=== PATIENT | female | born 2000 | race Caucasian/White ===

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

== ENCOUNTER 2019-04-05 16:32 | Emergency (ER) | payer MEDICAID, SELFPAY ==
--- NOTE | 2019-04-05 17:35 | RAD ---
Exam: Chest one view HISTORY:Shortness of breath Comparison: 08/17/2018 FINDINGS: Cardiac silhouette: Normal Aorta: Unremarkable Pulmonary vessels: Normal Costophrenic angles: Clear LUNGS: No masses or consolidation. Pneumothorax: None Osseous abnormalities: None IMPRESSION: No acute cardiopulmonary process.
== END 2019-04-05 18:12 | disposition home or self-care (01) ==
LOC: MADERS 16:32
DX: R07.2 Precordial pain (principal); F32.9 Major depressive disorder, single episode, unspecified; J45.909 Unspecified asthma, uncomplicated
CPT/HCPCS: 71045; 93005

== ENCOUNTER 2019-04-14 19:44 | Emergency (ER) | payer SELFPAY ==
[2019-04-14 20:07] LABS: Bilirubin Negative (Negative); Blood, Urine Moderate (Negative); Clarity Clear (Clear); Glucose, Urine (Dipstick) Negative (Negative); Leukocyte Negative (Negative); Nitrite Negative (Negative); Protein, Urine (Dipstick) Negative (Neg-Trace); Urobilinogen 0.2 mg/dL (Less than 2)
[2019-04-14 20:10] LABS: Pregnancy Test - Urine (BHCG) Negative (Negative)
[2019-04-14 20:11] LABS: Pregu Control Background? CLEAR/WHITE (CLR/WHITE); Pregu Control Bar Appear? YES (CONTROL BAR); Specific Gravity 1.023 (1.002-1.036)
[2019-04-14 20:14] LABS: Bacteria/HPF Rare-Few HPF (None Seen); WBC/HPF 0-3 HPF (0-3)
[2019-04-14] MEDS ORDERED: Sodium Chloride 0.9% 1,000 ML ONE (20:29)
[2019-04-14 20:53] LABS: #Basophils 0.1 thou/uL (0.0-0.2); #Eosinphils 0.3 thou/uL (0.0-0.7); #Lymphocytes 4.1 thou/uL (1.20-3.40); #Monocytes 0.9 thou/uL (0.11-0.59); #Neutrophils 7.2 thou/uL (1.40-6.50); %Basophils 0.7 % (0.0-1.0); %Eosinophils 2.1 % (0.0-10.0); %Lymphocytes 32.8 % (28.0-48.0); %Monocytes 7.3 % (0.0-4.0); %Neutrophils 57.2 % (31.0-61.0); Hemoglobin 13.6 g/dL (12.0-16.0); Mean Corpuscular HGB CONC 32.1 g/dL (32.0-36.0); Mean Corpuscular Hemoglobin 27.5 pg (25.0-35.0); Mean Corpuscular Volume 85.8 fL (78.0-98.0); Mean Platelet Volume 7.6 fL (7.4-10.4); Platelet Count 282 thou/uL (130-400); RBC Distribution Width 11.6 % (11.5-14.5); Red Blood Cell (RBC) Count 4.94 mill/uL (4.00-5.20); White Blood Cell (WBC) Count 12.5 thou/uL (4.8-10.8)
[2019-04-14 21:11] LABS: ALT (SGPT) 29 U/L (8-55); AST (SGOT) 17 U/L (5-30); Alkaline Phosphatase 90 U/L (40-100); Anion Gap 12 mmol/L (10-20); BUN (Urea Nitrogen) 8 mg/dL (8.4-21.0); Bilirubin, Total 0.3 mg/dL (0.2-1.2); CK (CPK) 36 U/L (29-168); Calc. Creatinine Clearance 0 mL/min (70-130); Carbon Dioxide 24 mmol/L (22-29); Chloride 107 mmol/L (98-107); Estimated GFR-MDRD Greater than 90; Globulin 3.2 g/dL (2.4-3.5); Glucose 94 mg/dL (70-105); Potassium 3.9 mmol/L (3.5-5.1); Protein, Total 7.2 g/dL (6.0-8.3); Sodium 139 mmol/L (136-145)
== END 2019-04-14 21:48 | disposition home or self-care (01) ==
LOC: MADERS 19:44
DX: N92.0 Excessive and frequent menstruation with regular cycle (principal); J45.909 Unspecified asthma, uncomplicated; F32.9 Major depressive disorder, single episode, unspecified
CPT/HCPCS: 80053; 81003; 81015; 81025; 82550; 84443; 85025; 96360; J7050

== ENCOUNTER 2020-05-20 00:11 | Emergency (ER) | payer MEDICAID, OTHER ==
[2020-05-20 19:30] LABS: SARS-CoV-2 MS2 Positive; SARS-CoV-2 N Gene Negative; SARS-CoV-2 S Gene Negative; SARS-CoV-2 by NAA Not Detected (NotDetected); SARS-CoV-2 orf1ab Negative
== END 2020-05-20 01:18 | disposition home or self-care (01) ==
LOC: MADERS 00:11
DX: J20.9 Acute bronchitis, unspecified (principal); Z20.828 Contact with and (suspected) exposure to other viral communicable diseases; F32.9 Major depressive disorder, single episode, unspecified
CPT/HCPCS: 87635; 99283; U0003

== ENCOUNTER 2023-06-21 19:14 | Emergency (ER) | payer OTHER ==
[2023-06-21 19:46] LABS: #Basophils 0.1 thou/uL (0.0-0.2); #Eosinphils 0.2 thou/uL (0.0-0.7); #Lymphocytes 3.9 thou/uL (1.20-3.40); #Monocytes 0.8 thou/uL (0.11-0.59); #Neutrophils 10.1 thou/uL (1.40-6.50); %Basophils 0.5 % (0.0-1.0); %Eosinophils 1.6 % (0.0-10.0); %Lymphocytes 25.5 % (21.0-51.0); %Monocytes 5.5 % (0.0-10.0); Hematocrit 45.2 % (36.0-47.0); Hemoglobin 14.3 g/dL (12.0-16.0); Mean Corpuscular HGB CONC 31.5 g/dL (32.0-36.0); Mean Corpuscular Volume 88.9 fl (78.0-98.0); Mean Platelet Volume 9.3 fL (7.4-10.4); Platelet Count 337 10x3/uL (130-400); RBC Distribution Width 12.2 % (11.5-14.5); Red Blood Cell (RBC) Count 5.09 mill/uL (4.20-5.40); White Blood Cell (WBC) Count 15.1 10x3/uL (4.8-10.8)
[2023-06-21 19:56] LABS: BHCG - Serum Negative (NEGATIVE); Pregs Control Background? CLEAR/WHITE (CLR/WHITE); Pregs Control Bar Appear? YES (CONTROL BAR)
[2023-06-21 20:03] LABS: Anion Gap 16 mmol/L (10-20); BUN (Urea Nitrogen) 12 mg/dL (7.0-18.7); Calc. Creatinine Clearance 0 mL/min (70-130); Calcium 9.6 mg/dL (7.8-10.44); Carbon Dioxide 23 mmol/L (22-29); Chloride 103 mmol/L (98-107); Estimated GFR 125; Glucose 102 mg/dL (70-105); Lipase 14 U/L (8-78); Potassium 3.6 mmol/L (3.5-5.1); Sodium 138 mmol/L (136-145)
[2023-06-21 20:09] LABS: Troponin I Less than 0.010 ng/mL (< 0.028)
[2023-06-21] MEDS ORDERED: Ketorolac Tromethamine 10 MG TAB ONE (20:51)
== END 2023-06-21 20:55 | disposition home or self-care (01) ==
LOC: MADERS 19:14
DX: R07.81 Pleurodynia (principal); F41.9 Anxiety disorder, unspecified; J45.909 Unspecified asthma, uncomplicated
CPT/HCPCS: 36415; 71045; 80048; 83690; 84484; 84703; 85025; 93005

== ENCOUNTER 2023-08-08 18:47 | Emergency (ER) | payer OTHER ==
[2023-08-08] MEDS ORDERED: Acetaminophen 500 MG TAB ONE (19:49)
[2023-08-08] MEDS ORDERED: Oseltamivir 75 MG CAP ONE (19:49)
[2023-08-08 19:50] LABS: INR-International Normal Ratio 1.1; Prothrombin Time 14.7 sec (12.0-14.7)
[2023-08-08] MEDS ORDERED: Lactated Ringer's 2,000 ML ONE (19:50)
[2023-08-08] MEDS ORDERED: Ketorolac Tromethamine 30 MG (1 mL) VIAL ONE (19:50)
[2023-08-08 19:51] LABS: PTT 33.2 sec (22.9-36.1)
[2023-08-08 19:52] LABS: BHCG - Serum Negative (NEGATIVE); Pregs Control Background? CLEAR/WHITE (CLR/WHITE); Pregs Control Bar Appear? YES (CONTROL BAR)
[2023-08-08 19:57] LABS: #Basophils 0.1 thou/uL (0.0-0.2); #Lymphocytes 1.8 thou/uL (1.20-3.40); #Monocytes 1.1 thou/uL (0.11-0.59); #Neutrophils 5.1 thou/uL (1.40-6.50); %Basophils 1.7 % (0.0-1.0); %Eosinophils 0.4 % (0.0-10.0); %Neutrophils 62.9 % (42.0-75.0); Hematocrit 45.1 % (36.0-47.0); Hemoglobin 14.4 g/dL (12.0-16.0); Mean Corpuscular HGB CONC 31.9 g/dL (32.0-36.0); Mean Corpuscular Hemoglobin 27.6 pg (27.0-31.0); Mean Corpuscular Volume 86.4 fl (78.0-98.0); Mean Platelet Volume 8.7 fL (7.4-10.4); Platelet Count 276 10x3/uL (130-400); RBC Distribution Width 12.2 % (11.5-14.5); Red Blood Cell (RBC) Count 5.22 mill/uL (4.20-5.40); White Blood Cell (WBC) Count 8.1 10x3/uL (4.8-10.8)
[2023-08-08 20:01] LABS: ALT (SGPT) 41 U/L (8-55); AST (SGOT) 26 U/L (5-34); Albumin 4.3 g/dL (3.5-5.0); Alkaline Phosphatase 93 U/L (40-110); Anion Gap 15 mmol/L (10-20); BUN (Urea Nitrogen) 6 mg/dL (7.0-18.7); Bilirubin, Total 0.4 mg/dL (0.2-1.2); Calc. Creatinine Clearance 0 mL/min (70-130); Calcium 9.7 mg/dL (7.8-10.44); Carbon Dioxide 26 mmol/L (22-29); Chloride 102 mmol/L (98-107); Estimated GFR 108; Globulin 3.6 g/dL (2.4-3.5); Glucose 139 mg/dL (70-105); Lipase 8 U/L (8-78); Potassium 3.7 mmol/L (3.5-5.1); Protein, Total 7.9 g/dL (6.0-8.3); Sodium 139 mmol/L (136-145); Troponin I Less than 0.010 ng/mL (< 0.028)
[2023-08-08 22:23] LABS: Lactic Acid 1.5 mmol/L (0.5-2.2)
== END 2023-08-08 22:55 | disposition home or self-care (01) ==
LOC: MADERS 18:47
DX: J10.1 Influenza due to other identified influenza virus with other respiratory manifestations (principal); R00.0 Tachycardia, unspecified
CPT/HCPCS: 36415; 71046; 80053; 83605; 83690; 84484; 84703; 85025; 85610; 85730; 87040; 87804; 93005; 94760; 96374; J1885; J7120

== ENCOUNTER 2023-09-03 09:11 | Emergency (ER) | payer OTHER | END 2023-09-03 09:26 | disposition home or self-care (01) | LOC: MADERS 09:11 | DX: A05.9 Bacterial foodborne intoxication, unspecified (principal) | CPT/HCPCS: 99283 ==

== ENCOUNTER 2024-01-02 21:38 | Emergency (ER) | payer OTHER | END 2024-01-02 22:57 | disposition home or self-care (01) | LOC: MADERS 21:38 | DX: S93.602A Unspecified sprain of left foot, initial encounter (principal); J45.909 Unspecified asthma, uncomplicated; X50.0XXA Overexertion from strenuous movement or load, initial encounter ==

== ENCOUNTER 2024-05-15 14:47 | Emergency (ER) | payer OTHER ==
[2024-05-15] MEDS ORDERED: Penicillin V Potassium 250 MG TAB ONE (16:26)
== END 2024-05-15 16:30 | disposition home or self-care (01) ==
LOC: MADERS 14:47
DX: J02.9 Acute pharyngitis, unspecified (principal)
CPT/HCPCS: 87081; 87400; 87430; 99283

== ENCOUNTER 2024-05-30 19:40 | Emergency (ER) | payer OTHER ==
[2024-05-30] MEDS ORDERED: Dexamethasone 10 MG/ML VIAL ONE (20:10)
[2024-05-30] MEDS ORDERED: Acetaminophen 500 MG TAB ONE (20:10)
[2024-05-30] MEDS ORDERED: Sodium Chloride 0.9% 1,000 ML ONE (20:11)
[2024-05-30 21:01] LABS: Band 1 % (5-11); Eosinophils 2 % (0-10); Hematocrit 31.3 % (36.0-47.0); Hemoglobin 9.7 g/dL (12.0-16.0); Lymphocytes 18 % (21-51); MDiff Complete? YES; Mean Corpuscular Hemoglobin 23.6 pg (27.0-31.0); Mean Corpuscular Volume 76.4 fl (78.0-98.0); Mean Platelet Volume 7.8 fL (7.4-10.4); Microcytosis SLIGHT = 6-15 cells (100X) (0-5/hpf); Monocytes 6 % (0-10); Neutrophil 73 % (42-75); Ovalocytes SLIGHT = 2-5 cells (100X) (0-1/hpf); Platelet Adequacy Comment Appears Adequate; Platelet Count 405 10x3/uL (130-400); RBC Distribution Width 13.2 % (11.5-14.5); Red Blood Cell (RBC) Count 4.11 mill/uL (4.20-5.40); Tear Drops SLIGHT = 2-5 cells (100X) (0-1/hpf); White Blood Cell (WBC) Count 14.8 10x3/uL (4.8-10.8)
[2024-05-30 21:12] LABS: ALT (SGPT) 24 U/L (8-55); AST (SGOT) 17 U/L (5-34); Albumin 3.7 g/dL (3.5-5.0); Alkaline Phosphatase 95 U/L (40-110); Anion Gap 12 mmol/L (10-20); BUN (Urea Nitrogen) 12 mg/dL (7.0-18.7); Bilirubin, Total 0.2 mg/dL (0.2-1.2); Calc. Creatinine Clearance 0 mL/min (70-130); Calcium 9.1 mg/dL (7.8-10.44); Carbon Dioxide 25 mmol/L (22-29); Chloride 108 mmol/L (98-107); Estimated GFR 109; Globulin 2.9 g/dL (2.4-3.5); Glucose 106 mg/dL (70-105); Potassium 3.8 mmol/L (3.5-5.1); Protein, Total 6.6 g/dL (6.0-8.3); Sodium 141 mmol/L (136-145)
[2024-05-30 21:25] LABS: Bilirubin Negative (Negative); Blood, Urine Negative (Negative); CAUTI Indications for Culture Fever or rigors; Clarity Clear (Clear); Glucose, Urine (Dipstick) Negative (Negative); Ketone, Urine Trace mg/dL (Negative); Leukocyte Negative (Negative); Nitrite Negative (Negative); Protein, Urine (Dipstick) Negative (Neg-Trace); RBC/HPF None Seen HPF (0-3); Urobilinogen 0.2 mg/dL (Less than 2); WBC/HPF 0-3 HPF (0-3); pH, Urine 8.5 (5.0-9.0)
[2024-05-30 21:26] LABS: Pregnancy Test - Urine (BHCG) Negative (Negative); Pregu Control Background? CLEAR/WHITE (CLR/WHITE); Pregu Control Bar Appear? YES (CONTROL BAR); Urine Culture Reflex No No
== END 2024-05-30 21:43 | disposition home or self-care (01) ==
LOC: MADERS 19:40
DX: B34.9 Viral infection, unspecified (principal); J01.90 Acute sinusitis, unspecified
CPT/HCPCS: 71046; 80053; 81001; 81025; 83605; 85025; 87081; 87428; 87430; 96372; J1100; J7030

== ENCOUNTER 2024-11-26 11:38 | Emergency (ER) | payer OTHER, SELFPAY | END 2024-11-26 12:15 | disposition home or self-care (01) | LOC: MADERS 11:38 | DX: J33.9 Nasal polyp, unspecified (principal); J30.9 Allergic rhinitis, unspecified; E66.9 Obesity, unspecified; Z79.51 Long term (current) use of inhaled steroids | CPT/HCPCS: 99283 ==